=== PATIENT | male | born 1995 | race Caucasian/White ===

== ENCOUNTER → 2021-11-06 | Outpatient (CLI) | payer OTHER ==
[2021-11-07 18:12] LABS: AMPHETAMINES, URINE Negative ng/mL (Cutoff=1000); BARBITURATE Negative ng/mL (Cutoff=200); BENZODIAZEPINES Negative ng/mL (Cutoff=200); CANNABINOIDS Negative ng/mL (Cutoff=20); COCAINE (METABOLITE) Negative ng/mL (Cutoff=300); CREATININE 151.4 mg/dL (20.0-300.0); MEPERIDINE Negative ng/mL (Cutoff=200); METHADONE Negative ng/mL (Cutoff=300); OPIATES Negative ng/mL (Cutoff=300); PHENCYCLIDINE Negative ng/mL (Cutoff=25); PROPOXYPHENE Negative ng/mL (Cutoff=300)
== END ==
LOC: LAB 12:38
PROVIDERS: Nurse Practitioner Psychiatric/Mental Health
DX: F90.9 Attention-deficit hyperactivity disorder, unspecified type (principal); Z79.899 Other long term (current) drug therapy
CPT/HCPCS: 80307